=== PATIENT | male | born 1960 ===

== ENCOUNTER 2018-02-18 21:27 | Emergency (ER) | payer MEDICARE, MEDICAID ==
[2018-02-18 21:47] VITALS: BP 131/88
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
== END 2018-02-18 23:13 | disposition home or self-care (01) ==
LOC: UCEAST 21:27
DX: Z04.1 Encounter for examination and observation following transport accident (principal); F79 Unspecified intellectual disabilities; Z88.8 Allergy status to other drugs, medicaments and biological substances
CPT/HCPCS: 99212; G0463